=== PATIENT | male | born 1995 | race Caucasian/White ===

== ENCOUNTER 2018-01-19 01:42 | Emergency (ER) | payer BC ==
[~2018-01-19] VITALS: Ht 167.6 cm; Wt 86.4 kg
[2018-01-19 01:47] VITALS: TEMP 36.6; O2SAT 98; Ht 167.6 cm; Wt 86.4 kg
[2018-01-19 02:26] LABS: CALCIUM 8.8 mg/dl (8.5-10.1); CREATININE 1.11 mg/dl (0.60-1.40); POTASSIUM 3.1 mmol/L (3.5-5.1)
[2018-01-19] MEDS ORDERED: POTASSIUM CHLORIDE 10 MEQ TABCR PO STA (04:22)
[2018-01-19] MEDS ORDERED: LORA-741 PO (05:05)
[2018-01-19] MEDS ORDERED: ESCI10TA17 PO (05:06)
--- NOTE | 2018-01-19 06:04 | EMERGENCY ROOM VISIT NOTE ---
History First contact with patient: 01:52 Chief Complaint: ALCOHOL OVERDOSE Stated Complaint: ALCOHOL OVERDOSE Nursing Triage Summary: pt arrives BLS from [facility]. per EMS pt was found outside by police intoxicated and unable to find a sober friend. pt arrives calling EMS staff "assholes". pt cooperative with hospital staff. pt reports hx of HTN, anxiety, and depression. pt admits to drinking "a shit load" of liquor tonight. pt takes depression medication but unsure what it is, pt also takes Lorazepam for anxiety. does not take HTN medications. History of Present Illness The patient is a 22 year old male who presents to the Emergency Room with complaints of alcohol intoxication who was found intoxicated outside the bar. EMS was summoned. Patient states he has had a lot of alcohol. No drugs. Patient denies fall, chest pain, dyspnea, abdominal pain or any other medical complaints. Review of Systems An 10 system review of systems was completed with positives and pertinent negatives listed in the HPI. Past Medical/Surgical History Hypertension, anxiety, depression Social History Smoking Status: Never Smoker Alcohol Use: occasionally Drug Use: none Marital Status: single Current/Historical Medications Scheduled Escitalopram (Lexapro), 15 MG PO DAILY Scheduled PRN Lorazepam (Ativan), 0.5 MG PO TID PRN for Anxiety Physical Exam Vital Signs Date Time Temp Pulse Resp B/P (MAP) Pulse Ox O2 Delivery O2 Flow Rate FiO2 01/19/18 05:31 111 16 144/83 98 Room Air 01/19/18 03:57 120 15 145/74 97 01/19/18 03:07 15 01/19/18 03:02 112 97 01/19/18 02:32 115 19 01/19/18 02:27 117 26 97 Room Air 01/19/18 02:12 104 27 01/19/18 02:02 116 22 157/91 96 Room Air 01/19/18 01:58 122 01/19/18 01:48 163/82 01/19/18 01:47 36.6 123 20 163/82 98 Room Air 01/19/18 01:47 98 Room Air Physical Exam PHYSICAL EXAM: VITALS: Vitals are noted on the nurse's note and reviewed by myself. Vital signs stable. GENERAL: Male with EtOH odor, in no acute distress, nondiaphoretic, well- developed well-nourished. The patient is visibly intoxicated. SKIN: The skin was without obvious lacerations, abrasions, or rashes. There is no tenting of the skin. Capillary reflex less than 2 seconds. HEENT: Normocephalic, atraumatic. PERRLA. EOMI. Conjunctiva with mild injection without icterus. Tympanic membranes without erythema or effusion bilaterally no hemotympanum. External auditory canals are clear. Nares patent bilaterally. No epistaxis. Oropharynx without erythema or exudate. Uvula midline. Oral mucosal moist. No lymphadenopathy. Neck is supple without cervical spine tenderness. HEART: Regular rate and rhythm without murmurs gallops or rubs. Peripheral pulses 2+. LUNGS: Clear to auscultation bilaterally without wheezes, rales or rhonchi. ABDOMEN: Positive bowel sounds x 4. Normal tympanic percussion. Soft, nontender, without masses or organomegaly. MUSCULOSKELETAL: Gross motor function of the upper and lower extremities intact. The patient has a staggering gait. NEUROLOGIC: The patient is visibly intoxicated. Once they were more sober they were alert and oriented to person place and time. Medical Decision & Procedures Laboratory Results 01/19/18 01:53 Test 01/19/18 01:53 Anion Gap 10.0 mmol/L (3-11) Est Creatinine Clear Calc Drug Dose 107.5 ml/min Estimated GFR () 108.7 Estimated GFR (Non- 93.8 BUN/Creatinine Ratio 13.5 (10-20) Calcium Level 8.8 mg/dl (8.5-10.1) Ethyl Alcohol mg/dL 301.0 mg/dl (0-3) ED Course Prior records/ancillary studies reviewed. Triage Nursing notes reviewed. Additional history obtained from EMS. The patient's history was concerning for altered mental status and a possible alcohol overdose. Differential diagnosis: Etiologies such as alcohol intoxication, toxicologic, infection, hypoglycemia, electrolyte abnormalities, cardiac sources, intracerebral event, neurologic, as well as others were entertained. Physical examination: As above. The patient is clinically intoxicated. no trauma noted. ER treatment provided: Monitoring Aspiration precautions The patient was frequently reassessed. Diagnostic interpretation by me: Cardiac monitoring did not reveal any evidence of dysrhythmia. The labs revealed hypokalemia. The patient's blood alcohol level was 301 mg/dL. The patient's history was reviewed once they were more coherent and their intoxication cleared. The patient states they have been in good health recently and had no medical complaints. The patient admitted to consuming alcohol. No additional concerning findings were noted. The patient complained of no symptoms to suggest assault. This appears to be consistent with an isolated overdose of alcohol. By the evaluation outlined above emergent etiologies such as trauma, infection, hypoglycemia, electrolyte abnormalities, cardiac sources, intracerebral event, neurologic,as well as others were deemed relatively unlikely. The patient was informed about the findings as listed above. The patient was counseled on the dangers of excessive alcohol use. I gave my usual and customary discussion regarding this issue. All questions were answered and the patient was pleased with the treatment. Return instructions were outlined and the patient was discharged in stable condition once their mental status improved and a safe destination was confirmed. Outpatient prescription management: None Referral: The patient was referred back to their primary care physician for follow-up in 2 to 3 days for a recheck of their current condition. Medical Decision as above Medication Reconcilliation Current Medication List: was personally reviewed by me Blood Pressure Screening Patient's blood pressure: Normal blood pressure Impression Primary Impression: Alcohol use with intoxication Additional Impression: Hypokalemia Departure Information Dispostion Home / Self-Care Condition GOOD Patient Instructions My [facility] Access Media 3 Additional Instructions Keep well-hydrated. Tylenol every 6 hours as needed for pain (Maximum 3000 mg Tylenol in 24 hr period). Follow up with family doctor and/or health services as needed. No driving for the next 24 hours. Recommend no alcohol for the next 48 hours and avoid binge drinking in the future. Return to ER sooner for chest pain, abdominal pain, worsening signs or symptoms or as needed. Problem Qualifiers
[2018-01-19 06:10] VITALS: BP 150/92; PULSE 106; O2SAT 96
== END 2018-01-19 06:19 | disposition home or self-care (01) ==
LOC: EDBD 01:42 → C.EDA 01:44
DX: F10.929 Alcohol use, unspecified with intoxication, unspecified (principal); Y90.8 Blood alcohol level of 240 mg/100 ml or more; E87.6 Hypokalemia; I10 Essential (primary) hypertension; F41.8 Other specified anxiety disorders